=== PATIENT | male | born 1990 | race Two or more races ===

== ENCOUNTER 2016-10-15 01:07 | Emergency (ER) | payer MEDICAID ==
--- NOTE | 2016-10-15 01:32 | ED Physician Chart ---
ED Chief Complaint/HPI - Patient Information Date Seen:: 10/15/16 Time Seen:: 01:14 Chief Complaint:: RIGHT RIB AREA PAIN History of Present Illness:: THIS IS A 26 YO MALE BIB [facility] FOR EVALUATION AND TREATMENT FOR BOOKING. THE PATIENT COMPLAINTS OF RIGHT RIB AREA PAIN, RIGHT LEG PAIN AND HEAD PAIN. THE PATIENT WAS UNCOOPERATIVE AND CONSTANTLY TALKING. Allergies:: Allergies Allergy/AdvReac Type Severity Reaction Status Date / Time No Known Allergies Allergy Verified 10/15/16 01:15 Vitals:: Vital Signs - 8 hr 10/15/16 01:10 Temp 97.7 F HR 82 RR 20 BP 121/82 O2 Sat % 98 Historian:: Patient, EMS ([facility]) Review:: Nurse's Note Reviewed ED Review of Systems - Review of Systems General/Constitutional: No fever, No chills, No weight loss, No weakness, No diaphoresis, No edema, No loss of appetite Skin: No skin lesions, No rash, No bruising Head: No headache, No light-headedness Eyes: No loss of vision, No pain, No diplopia ENT: No earache, No nasal drainage, No sore throat, No tinnitus Neck: No neck pain, No swelling, No thyromegaly, No stiffness, No mass noted Cardio Vascular: No chest pain, No palpitations, No PND, No orthopnea, No edema Pulmonary: No SOB, No cough, No sputum, No wheezing, Other (RIGHT RIB PAIN) GI: No nausea, No vomiting, No diarrhea, No pain, No melena, No hematochezia, No constipation, No hematemesis G/U: No dysuria, No frequency, No hematuria Musculoskeletal: No bone or joint pain, No back pain, No muscle pain Endocrine: No polyuria, No polydipsia Psychiatric: No prior psych history, No depression, No anxiety, No suicidal ideation Hematopoietic: No bruising, No lymphadenopathy Allergic/Immuno: No urticaria, No angioedema Neurological: No syncope, No focal symptoms, No weakness, No paresthesia, No headache, No seizure, No dizziness, No confusion, No vertigo ED Past Medical History - Past Medical History Obtainable: No (PATIENT IS UNCOOPERATIVE) Past Medical History: No significant medical hx Family History: None Social History: Smoker, Alcohol, Illicit Drug Use Surgical History: None Psychiatricy History: None Medication: Reviewed Family Medical History - Family Member Mother History Unknown: Yes Ethnicity: Living Status: Still Living ED Physical Exam - Physical Examination General/Constitutional: Awake, Well-developed, well-nourished, Alert, No distress, GCS 15, Non-toxic appearing, Ambulatory Other Gen/Cons comments:: THE PATIENT IS ALERT ORIENTED TIMES THREE BUT NOT COOPERATIVE. Head: Atraumatic Other Head comments:: THERE IS NO SWELLING, REDNESS, TENDERNESS OR BROKEN SKIN OF THE FACE AND HEAD. Eyes: Lids, conjuctiva normal, PERRL, EOMI Skin: Nl inspection, No rash, No skin lesions, No ecchymosis, Well hydrated, No lymphadenopathy ENMT: External ears, nose nl, Nasal exam nl, Lips, teeth, gums nl Neck: Nontender, Full ROM w/o pain, No JVD, No nuchal rigidity, No bruit, No mass, No stridor Respiratory: Nl effort/Exclusion, Clear to Auscultation, No Wheeze/Rhonchi/Rales Other Respiratory comments:: THE RIGHT RIB AREA IS NOT RED, SWOLLEN, TENDER AND THE PATIENT BREATHS WITHOUT PAIN OR DIFFICULTY SPEAKING. Cardio Vascular: RRR, No murmur, gallop, rubs, NL S1 S2 GI: No tenderness/rebounding/guarding, No organomegaly, No hernia, Normal BS's, Nondistended, No mass/bruits, No McBurney tenderness : No CVA tenderness Extremities: No tenderness or effusion, Full ROM, normal strength in all extremities, No edema, Normal digits & nails Neuro/Psych: Alert/oriented, DTR's symmetric, Normal sensory exam, Normal motor strength, Judgement/insight normal, Mood normal, Normal gait, No focal deficits Misc: normal gait, Normal back, No paraspinal tenderness ED Assessment - Assessment General Assessment: THERE ARE NO AREA OF TENDERNESS, REDNESS OR SWELLING NOTED ON HE CHEST, HEAD OR LEGS. ED Septic Shock - . Is Septic Shock (SBP<90, OR Lactate>4 mmol\L) present?: No - <6hrs of presentation: Vital Signs: Vital Signs - 8 hr 10/15/16 01:10 Temp 97.7 F HR 82 RR 20 BP 121/82 O2 Sat % 98 ED Reassessment (Disposition) - Reassessment Reassessment Condition:: Unchanged - Diagnosis Diagnosis:: RIGHT CHEST WALL PAIN - Aftercare/Follow up Instructions Aftercare/Follow-Up Instructions:: Counseled pt regarding lab results/diagnosis & need follow up, Refer to Discharge Instructions, Counseled pt & family regarding lab results/diagnosis & need follow up - Patient Disposition Discharge/Transfer:: [facility] Condition at Disposition:: Unchanged ED Discharge Plan - Patient Disposition Admit/Discharge/Transfer: [facility] Condition at Disposition: Unchanged
== END 2016-10-15 01:45 | disposition still patient (30) ==
LOC: ER 01:07
DX: R07.89 Other chest pain (principal); F17.200 Nicotine dependence, unspecified, uncomplicated
CPT/HCPCS: Z7502